=== PATIENT | female | born 1995 | race Caucasian/White ===

== ENCOUNTER 2017-11-30 13:30 | Emergency (ER) | payer OTHER ==
[~2017-11-30] VITALS: Ht 167.6 cm; Wt 58.4 kg
[2017-11-30 13:45] VITALS: BP 101/57
== END 2017-11-30 15:13 | disposition home or self-care (01) ==
LOC: ED 15:07
DX: R07.89 Other chest pain (principal)
CPT/HCPCS: 71046; 93005; 99284